=== PATIENT | female | born 1930 | race Caucasian/White ===

== ENCOUNTER 2020-05-06 19:23 | Emergency (ER) | payer MEDICARE, SELFPAY ==
[~2020-05-06] VITALS: Ht 170.2 cm; Wt 77.1 kg
[2020-05-06 19:44] VITALS: Ht 170.2 cm; Wt 77.1 kg
[2020-05-06 20:12] LABS: BASOPHIL % 0.5 % (0.2-1.3); PLATELET COUNT 151 x10^3mcL (179-408); RED CELL DISTRIBUTION WIDTH 13.7 % (12.3-17.7)
[2020-05-06 20:19] LABS: CALCIUM 7.9 mg/dL (8.5-10.1); CARBON DIOXIDE 28.6 mmol/L (21-32); CHLORIDE SERUM 99 mmol/L (98-107); CREATININE SERUM 0.9 mg/dL (0.6-1.0); GLUCOSE SERUM 123 mg/dL (74-106); POTASSIUM SERUM 3.5 mmol/L (3.5-5.1); SODIUM SERUM 135 mmol/L (136-145)
[2020-05-06 20:24] LABS: ALKALINE PHOSPHATASE 77 U/L (46-116); ALT/SGPT 34 U/L (14-59); AST/SGOT 46 U/L (15-37); BILIRUBIN TOTAL 0.8 mg/dL (0.20-1.00); C REACTIVE PROTEIN 7.3 mg/dL (<=0.9); LACTIC DEHYDROGENASE (LDH) 236 U/L (100-190); TOTAL PROTEIN, SERUM 6.2 g/dL (6.4-8.2)
[2020-05-06 20:27] LABS: ALBUMIN 2.8 g/dL (3.4-5.0)
[2020-05-07 02:13] VITALS: BP 116/54
== END 2020-05-07 02:14 | disposition short-term general hospital (02) ==
LOC: ED 19:23
PROVIDERS: Emergency Medicine
DX: U07.1 COVID-19 (principal); J12.82 Pneumonia due to coronavirus disease 2019
CPT/HCPCS: 36600; 83880; 85378; 87804; J0456; J0696; J1100; J7050; J7060; U0003